=== PATIENT | male | born 1965 | race Caucasian/White ===

== ENCOUNTER 2020-10-03 11:57 | Inpatient (IN) | payer OTHER ==
[~2020-10-03] VITALS: Ht 193 cm; Wt 91.6 kg
--- NOTE | 2020-10-03 12:11 | NUR ---
[place] 89 [facility] [employer] C/O DIZZ[facility]ES/ NEAR SYNCOPE. PT AAOX4, VSS. RR EVEN & UNLABORED. DENIES CP, SOB, N/V, WEAKNESS AT THIS TIME. PT SEEN & EVAL'D BY DR. HERNANDEZ. PLACED ON HEADING AND PRIMING TOOL SETTER, SR. WILL CONT TO MONITOR.
[2020-10-03 12:28] LABS: WHITE BLOOD COUNT (AUTO) 6.5 K/uL (4.3-11.0)
[2020-10-03 12:29] LABS: BASOPHILS % (AUTO) 0.4 % (0.0-2.0); EOSINOPHILS % (AUTO) 1.6 % (0.0-6.0); HEMATOCRIT 41 % (39-51); LYMPHOCYTES # (AUTO) 1.2 K/uL (0.8-4.8); LYMPHOCYTES % (AUTO) 17.9 % (20.0-44.0); MEAN CORPUSCULAR HGB CONC 34 g/dl (31.0-36.0); MEAN CORPUSCULAR VOLUME 92 fL (80-96); MONOCYTES # (AUTO) 0.6 K/uL (0.1-1.30); MONOCYTES % (AUTO) 9.1 % (2.0-12.0); NEUTROPHILS # (AUTO) 4.6 K/uL (1.8-8.9); PLATELET COUNT (AUTO) 203 K/uL (150-450); RED BLOOD CELL COUNT(AUTO) 4.49 MIL/uL (4.5-6.0)
[2020-10-03 12:31] LABS: CALCIUM, SERUM 8.5 mg/dL (8.5-10.1); CARBON DIOXIDE 27 mmol/L (21-32); CHLORIDE 104 mmol/L (98-107); CREATININE 0.9 mg/dL (0.6-1.3); GLUCOSE 129 mg/dL (74-106); POTASSIUM 4.1 mmol/L (3.5-5.1); SODIUM SERUM 139 mmol/L (136-145); UREA NITROGEN, BLOOD 12 mg/dL (7-18)
[2020-10-03 12:36] LABS: ALANINE AMINOTRANSFERASE 42 U/L (12-78); ALBUMIN 3.7 g/dL (3.4-5.0); ALKALINE PHOSPHATASE 88 U/L (46-116); ASPARTATE AMINOTRANSFERASE 14 U/L (15-37); BILIRUBIN,DIRECT 0.2 mg/dL (0.0-0.2); BILIRUBIN,TOTAL 0.6 mg/dL (0.2-1.0); TOTAL PROTEIN, SERUM 6.9 g/dL (6.4-8.2)
--- NOTE | 2020-10-03 13:30 | NUR ---
PT AMB TO BR. DENIES CP, SOB, DIZZINESS, N/V DURING AMBULATION. WILL CONT TO MONITOR.
[2020-10-03] MEDS ORDERED: CLOP75TA15 PO (14:32)
[2020-10-03] MEDS ORDERED: B/P MED (14:32)
[2020-10-03] MEDS ORDERED: ASPI-1169 PO (14:32)
[2020-10-03] MEDS ORDERED: ATOR20TA PO (14:32)
--- NOTE | 2020-10-03 15:07 | NUR ---
PT STABLE, DENIES CP, SOB, DIZZINESS, N/V, WEAKNESS AT THIS TIME. ON TELE, SR. WILL CONT TO MONITOR.
[2020-10-03] MEDS ORDERED: ONDANSETRON HCL/PF 4 MG/2 ML VIAL IVP PRN (17:00)
[2020-10-03] MEDS ORDERED: ACETAMINOPHEN 325 MG TABLET PO PRN (17:00)
[2020-10-03] MEDS ORDERED: IV NS 0.9% 1,000 ML IV PRN (17:00)
[2020-10-03] MEDS ORDERED: HYDROCODONE/APAP 5/325MG TABLET PO PRN (17:00)
[2020-10-03] MEDS ORDERED: ZOLPIDEM TARTRATE 5 MG TABLET PO PRN (17:00)
[2020-10-03] MEDS ORDERED: Z GUARD REMEDY 2 OZ OINT TP PRN (17:00)
[2020-10-03] MEDS ORDERED: MAGNESIUM HYDROXIDE 30 ML UDC PO PRN (17:00)
[2020-10-03] MEDS ORDERED: MORPHINE SULFATE INJ 2 MG/ML DISP.SYRIN IV PRN (17:00)
[2020-10-03] MEDS ORDERED: MAG HYDROX/AL HYDROX/SIMETH 30 ML UDC PO PRN (17:00)
--- NOTE | 2020-10-03 17:55 | NUR ---
BED ASSIGNMENT: 304-1
--- NOTE | 2020-10-03 18:34 | NUR ---
REPORT GIVEN TO PENNIE UPTON FOR ANTON.
--- NOTE | 2020-10-03 19:01 | NUR ---
RN NOTES PT ARRIVED TO UNIT AT 1855 VIA WHEELCHAIR ACCOMPANIED BY Jose Luis ZAMORANO. PT IS A/O X4. ABLE TO MAKE NEED KNOWN, DENIES PAIN, DIZZINESS, LIGHTHEADEDNESS, N & V AT THIS TIME. NIGHT PENNIE MOODY ON UNIT AND AWARE. SHE WILL CONTINUE WITH ADMISSION PROCESS.
--- NOTE | 2020-10-03 19:05 | NUR ---
[employer] VICE PRESIDENT OPENING NOTES: RECEIVED PATIENT IN BED, AWAKE, A/O X4. NO S/S OF DISTRESS NOTED. CALL LIGHT INSTRUCTED AND WITHIN REACH. BED IN LOWEST AND LOCKED POSITION. INSTRUCTED BEDREST FOR NOW,AND TO CALL FOR ANY HELP, PATIENT VERBALIZED UNDERSTANDING
[2020-10-03 20:00] VITALS: BP 109/69
[2020-10-03] MEDS ORDERED: ATORVASTATIN 10 MG TABLET PO SCH (22:00)
[2020-10-03 22:20] VITALS: BP 106/67
[2020-10-03 22:21] VITALS: BP 119/74
[2020-10-03 22:22] VITALS: BP 111/75
[2020-10-03 23:41] VITALS: BP 106/74
[2020-10-04 04:49] VITALS: BP 106/53
[2020-10-04 06:57] LABS: BASOPHILS % (AUTO) 0.4 % (0.0-2.0); EOSINOPHILS % (AUTO) 2.6 % (0.0-6.0); HEMATOCRIT 40 % (39-51); HEMOGLOBIN 13.4 g/dL (13.5-17.5); LYMPHOCYTES # (AUTO) 1.4 K/uL (0.8-4.8); LYMPHOCYTES % (AUTO) 24.8 % (20.0-44.0); MEAN CORPUSCULAR HGB CONC 34 g/dl (31.0-36.0); MEAN CORPUSCULAR VOLUME 93 fL (80-96); MONOCYTES # (AUTO) 0.7 K/uL (0.1-1.30); MONOCYTES % (AUTO) 11.2 % (2.0-12.0); NEUTROPHILS # (AUTO) 3.6 K/uL (1.8-8.9); PLATELET COUNT (AUTO) 182 K/uL (150-450); RED BLOOD CELL COUNT(AUTO) 4.27 MIL/uL (4.5-6.0); WHITE BLOOD COUNT (AUTO) 5.8 K/uL (4.3-11.0)
--- NOTE | 2020-10-04 07:13 | NUR ---
CATALOGUE ILLUSTRATOR OPENING NOTES RECEIVED PATIENT RESTING IN BED. PATIENT IS A/O X4, BREATHING EVENLY AND NONLABORED ON ROOM AIR. NO SIGNS OF DISTRESS NOTED. PATIENT DOES NOT COMPLAIN OF PAIN AT THIS TIME. PATIENT IS ON TELE MONITOR SHOWING SINUS DAVID @ 55 BPM. PATIENT HAS IV ACCESS ON RAC #18 RUNNING NS @ 75ML/HR. SAFETY MEASURES ARE IN PLACE BED LOW LOCKED CALL LIGHT WITHIN REACH SIDE RAILS UP X2. WILL CONTINUE TO MONITOR
[2020-10-04 07:43] LABS: CALCIUM, SERUM 8.5 mg/dL (8.5-10.1); CARBON DIOXIDE 26 mmol/L (21-32); CHLORIDE 107 mmol/L (98-107); CHOLESTEROL 70 mg/dL (<200); CREATININE 0.7 mg/dL (0.6-1.3); GLUCOSE 94 mg/dL (74-106); HDL CHOLESTEROL 23 mg/dL (40-60); LDL 31 mg/dL (0-99); MAGNESIUM 2.2 mg/dL (1.8-2.4); PHOSPHORUS 4.2 mg/dL (2.5-4.9); POTASSIUM 4.2 mmol/L (3.5-5.1); SODIUM SERUM 144 mmol/L (136-145); THYROID STIMULATING HORMONE 0.631 uIU/mL (0.358-3.74); TRIGLYCERIDES 74 mg/dL (30-150); UREA NITROGEN, BLOOD 9 mg/dL (7-18)
[2020-10-04] MEDS ORDERED: ASPIRIN 81 MG TAB.CHEW PO SCH (09:00)
[2020-10-04] MEDS ORDERED: CLOPIDOGREL BISULFATE 75 MG TABLET PO SCH (09:00)
--- NOTE | 2020-10-04 09:21 | NUR ---
MOLD [employer]OLER NOTE RECEIVED ORDER FOR DISCHARGE. PATIENT IS A/O X4. PATIENT IS BREATHING EVENLY AND NONLABORED ON ROOM AIR. PATIENT IS IN NO ACUTE SIGNS OF DISTRESS. PATIENT WAS GIVEN DISCHARGE INSTRUCTIONS BOTH VERBALLY AND IN WRITTEN FORM. PATIENT VERBALIZED UNDERSTANDING. ALL BELONGINGS ACCOUNTED FOR AND VALUABLES FORM SIGN. ID BAND AND IV ACCESS WAS REMOVED. PATIENT LEFT IN STABLE CONDITION.
--- NOTE | 2020-10-05 16:13 | NUR ---
SS Consult requested over the weekend for homelessness. However, pt. has already departed.
== END 2020-10-04 09:30 | disposition home or self-care (01) | DRG 48 ==
LOC: ER 11:59 → TELE 18:02
PROVIDERS: ADMIT Nurse Practitioner Acute Care; ATTEND Nurse Practitioner Acute Care
DX: G90.8 Other disorders of autonomic nervous system (principal); E66.9 Obesity, unspecified; E78.5 Hyperlipidemia, unspecified; I10 Essential (primary) hypertension; I25.10 Atherosclerotic heart disease of native coronary artery without angina pectoris; Z95.5 Presence of coronary angioplasty implant and graft; I25.2 Old myocardial infarction; Z68.24 Body mass index [BMI] 24.0-24.9, adult; R73.9 Hyperglycemia, unspecified; Z20.822 Contact with and (suspected) exposure to COVID-19; Z79.02 Long term (current) use of antithrombotics/antiplatelets; Z71.3 Dietary counseling and surveillance
CPT/HCPCS: 36415; 70450-TC; 71045-TC; 80048-TC; 80061-TC; 80076-TC; 83735-TC; 84100-TC; 84443-TC; 84484-TC; 85025-TC; 85730-TC; 87081-TC; 93307-TC; C9803; G0378; J7030